=== PATIENT | male | born 1935 | race Caucasian/White ===

== ENCOUNTER 2018-07-08 10:16 | Emergency (ER) | payer MEDICARE, BC ==
[2018-07-08] MEDS ORDERED: Lidocaine 2% 20 ML MDV INFILT ONE (10:17)
--- NOTE | 2018-07-08 10:49 | EDM.PDOC ---
ED HPI GENERAL MEDICAL PROBLEM - General Stated Complaint: rt elbow Time Seen by Provider: 07/08/18 10:16 Source of Information: Reports: Patient, Family History Limitations: Reports: No Limitations - History of Present Illness INITIAL COMMENTS - FREE TEXT/NARRATIVE: 83 y.o.w.m came with her daughter to the ed from the [facility] living [facility] after he mist a step and fell onto his right elbow. Pt had a minor LA at his left hand which was repaired with steri strips at he residential. Pt has FROM of all his extremities and denied any other acute medical issues. BP 125/93 RR 18 Pulse ox 95 on RA Temp 36.9 pulse 87 Onset Date: 07/08/18 Onset Time: 09:00 Duration: Hour(s):, Constant Location: Reports: Upper Extremity, Right (elbow) Quality: Reports: Ache, Dull Improves with: Reports: Rest Worsens with: Reports: Movement Context: Reports: Trauma Associated Symptoms: Reports: No Other Symptoms - Related Data Allergies Allergy/AdvReac Type Severity Reaction Status Date / Time montelukast sodium Allergy Cannot Verified 07/08/18 11:01 [From Misael] Remember silk sutures Allergy Cannot Uncoded 07/08/18 11:01 Remember Home Meds: Home Meds Alendronate [Fosamax] 70 mg PO Q7D@0600 02/16/15 [History] Aspirin [Carrizozo Aspirin] 81 mg PO DAILY 02/16/15 [History] Calcium Carbonate/Vitamin D3 [Calcium 600-Vit D3 800 Tablet] 1 tab PO BID [History] Cyanocobalamin (Vitamin B12) [Vitamin B12] 1,000 mcg PO DAILY 02/16/15 [History] Dextromethorphan HBr/Chlor-Mal [Robitussin Long-Acting] 5 ml PO Q8H PRN [History] Docusate Sodium 100 mg PO BID 02/16/15 [History] Dutasteride [Avodart] 0.5 mg PO DAILY 02/16/15 [History] Meloxicam 15 mg PO DAILY 02/16/15 [History] Memantine HCl [Namenda Xr] 21 mg PO DAILY 02/16/15 [History] Mirtazapine [Remeron] 15 mg PO BEDTIME 02/16/15 [History] Multivit-Min/FA/Lycopene/Lut [Certavite Sr-Antioxidant Tab] 1 tab PO DAILY 02/16 [History] Polyethylene Glycol 3350 [MiraLAX] 17 gm PO DAILY PRN 02/16/15 [History] Rivastigmine [Exelon] 9.5 mg TRDERM DAILY 02/16/15 [History] Simvastatin [Zocor] 20 mg PO BEDTIME 02/16/15 [History] traMADol HCl [Ultram] 50 mg PO TID PRN 02/16/15 [History] Cephalexin [Keflex] 500 mg PO Q6HRBH #40 capsule 07/08/18 [Rx] ED ROS GENERAL - Review of Systems Review Of Systems: See Below Constitutional: Reports: No Symptoms HEENT: Reports: No Symptoms Respiratory: Reports: No Symptoms Cardiovascular: Reports: No Symptoms Endocrine: Reports: No Symptoms GI/Abdominal: Reports: No Symptoms : Reports: No Symptoms Musculoskeletal: Reports: No Symptoms Skin: Reports: Wound (laceration right elbow, left hand) Neurological: Reports: No Symptoms Psychiatric: Reports: No Symptoms Hematologic/Lymphatic: Reports: No Symptoms Immunologic: Reports: No Symptoms ED EXAM, SKIN/RASH Exam: See Below Exam Limited By: No Limitations General Appearance: Alert, WD/WN, Mild Distress Eye Exam: Bilateral Eye: Normal Inspection Ears: Normal External Exam Nose: Normal Inspection Throat/Mouth: Normal Inspection, Normal Lips, Normal Gums, Normal Oropharynx, Normal Voice, No Airway Compromise Head: Atraumatic, Normocephalic Neck: Normal Inspection, Supple, Non-Tender, Full Range of Motion Respiratory/Chest: No Respiratory Distress, Lungs Clear, Normal Breath Sounds, No Accessory Muscle Use, Chest Non-Tender Cardiovascular: Normal Peripheral Pulses, Regular Rate, Rhythm, No Edema, No JVD , No Murmur, No Rub GI/Abdominal: Normal Bowel Sounds, Soft, Non-Tender, No Organomegaly, No Distention, No Abnormal Bruit, No Mass (Male) Exam: Deferred Rectal (Males) Exam: Deferred Back Exam: Normal Inspection, Full Range of Motion Extremities: Normal Range of Motion, Non-Tender, Normal Capillary Refill, Other (Lac right post elbow) Neurological: Alert, Oriented, CN II-XII Intact, Normal Cognition, Normal Gait, No Motor/Sensory Deficits Psychiatric: Normal Affect, Normal Mood Lymphatic: No Adenopathy ED SKIN PROCEDURES - Laceration/Wound Repair Right Elbow Lac/Wound length In cm: 1 Appearance: Irregular, Mildly Contaminated Distal NVT: Neuro & Vascular Intact, No Tendon Injury Anesthetic Type: Local Local Anesthesia - Lidocaine (Xylocaine): 2% Plain Local Anesthetic Volume: 2cc Skin Prep: Providone-Iodine (Betadine) Saline Irrigation (cc's): 5 Exploration/Debridement/Repair: Wound Explored, In a Bloodless Field, Explored to Base Closed with: Sutures Suture Size: 4-0 # of Sutures: 2 Suture Type: Interrupted, Other (ethilon) Tetanus Status Addressed: Yes Complications: No Course - Vital Signs Text/Narrative:: 83 y.o.w.m came with her daughter to the ed from the [facility]isting living place after he mist a step and fell onto his right elbow. Pt had a minor LA at his left hand which was repaired with steri strips at he residential. Pt has FROM of all his extremities and denied any other acute medical issues. BP 125/93 RR 18 Pulse ox 95 on RA Temp 36.9 pulse 87 PE: WNWD W M with a minor LAC right elbow Procedure: Please see note above Impression: LAC right elbow, repaired in the ED. [place] Lac left hand Tx: Wound care, TD immunization Reexam: Improved Plan: D/C with instructions Last Recorded V/S: Last Vital Signs Temp 36.4 C 07/08/18 11:18 Pulse 74 07/08/18 11:18 Resp 18 07/08/18 11:18 BP 128/93 H 07/08/18 11:18 Pulse Ox 95 07/08/18 11:18 - Orders/Labs/Meds Orders: Active Orders 24 hr Category Date Time Status Vaccines to be Administered [RC] PER UNIT ROUTINE Care 07/08/18 10:50 Active Meds: Medications Discontinued Medications Generic Name Dose Route Start Last Admin Trade Name Freq PRN Reason Stop Dose Admin Cephalexin 500 mg 07/08/18 10:50 07/08/18 11:11 Keflex PO 07/08/18 10:51 500 mg ONETIME ONE Administration Diphtheria/Tetanus/Acell Pertussis 0.5 ml 07/08/18 10:49 07/08/18 11:11 Adacel IM 07/08/18 10:50 0.5 ml .ONCE ONE Administration Departure - Departure Time of Disposition: 10:51 Disposition: Home, Self-Care 01 Condition: Good Clinical Impression: Laceration - Discharge Information *PRESCRIPTION DRUG MONITORING PROGRAM REVIEWED*: Yes *COPY OF PRESCRIPTION DRUG MONITORING REPORT IN PATIENT JORJE: Yes Prescriptions: Cephalexin [Keflex] 500 mg PO Q6HRBH #40 capsule Instructions: Laceration Care, Adult, Cephalexin tablets or capsules Referrals: Yevgeniy Bhagat MD [Primary Care Provider] - Forms: ED Department Discharge Additional Instructions: Please apply neosporine ointment twice the affected area, wound check in 2-3 days suture removal in 10-14 days. Please take the abx as recommended, please come back if your symptoms get worse acutely - My Orders Last 24 Hours: My Active Orders 07/08/18 10:50 Vaccines to be Administered [RC] PER UNIT ROUTINE - Assessment/Plan Last 24 Hours: My Active Orders 07/08/18 10:50 Vaccines to be Administered [RC] PER UNIT ROUTINE
[2018-07-08] MEDS: Diphtheria,Pertussis(Acell),Tetanus Vaccine 0.5 ML SDV IM ONE (11:11)
[2018-07-08] MEDS: Cephalexin 500 MG Cap PO ONE (11:11)
[2018-07-08 11:29] VITALS: BP 128/93
== END 2018-07-08 11:42 | disposition home or self-care (01) ==
LOC: FB.ED 10:16
DX: S51.012A Laceration without foreign body of left elbow, initial encounter (principal); Z88.8 Allergy status to other drugs, medicaments and biological substances; Z79.82 Long term (current) use of aspirin; Z23 Encounter for immunization; W10.9XXA Fall (on) (from) unspecified stairs and steps, initial encounter
CPT/HCPCS: 12001; 90471; 90715; 99282; A9270